=== PATIENT | female | born 1945 | race African-American/Black ===

== ENCOUNTER 2017-03-20 10:50 | Inpatient (IN) | payer MEDICARE, MEDICAID ==
--- NOTE | 2017-03-20 12:43 | RAD ---
FOUR VIEWS OF THE RIGHT KNEE: COMPARISON: None. HISTORY: Right knee pain after feeling a pop in the knee. FINDINGS: Four views of the right knee show moderate prepatellar soft tissue swelling. There is a fracture of the lower pole of the patella. No knee effusion is seen. There is mild patellofemoral osteoarthri tis. IMPRESSION: Fracture of the lower pole of the patella. POS: [facility]
[2017-03-20] MEDS ORDERED: Morphine 10 MG/ML VIAL ONE (13:28)
[2017-03-20 14:05] LABS: #Eosinphils 0.1 thou/uL (0.0-0.7); #Lymphocytes 1.2 thou/uL (1.20-3.40); #Monocytes 0.4 thou/uL (0.11-0.59); %Basophils 0.3 % (0.0-1.0); %Eosinophils 1.4 % (0.0-10.0); %Lymphocytes 20.6 % (21.0-51.0); %Monocytes 7.4 % (0.0-10.0); Hematocrit 33.8 % (36.0-47.0); Mean Platelet Volume 7.3 fL (7.4-10.4); Red Blood Cell (RBC) Count 3.77 mill/uL (4.20-5.40); White Blood Cell (WBC) Count 5.7 thou/uL (4.8-10.8)
[2017-03-20 14:08] LABS: ALT (SGPT) 11 U/L (8-55); AST (SGOT) 20 U/L (5-34); Alkaline Phosphatase 107 U/L (40-150); Anion Gap 16 mmol/L (10-20); BUN (Urea Nitrogen) 15 mg/dL (9.8-20.1); Bilirubin, Total 0.6 mg/dL (0.2-1.2); Calc. Creatinine Clearance 0 mL/min (70-130); Calcium 9.7 mg/dL (7.8-10.44); Carbon Dioxide 22 mmol/L (23-31); Chloride 105 mmol/L (98-107); Estimated GFR-MDRD 74; Globulin 4.1 g/dL (2.4-3.5)
[2017-03-20] MEDS ORDERED: Metoprolol Tartrate 5 MG/5 ML VIAL ONE (14:29)
[2017-03-20] MEDS ORDERED: Ketorolac Tromethamine 30 MG/ML VIAL ONE (14:48)
[2017-03-20] MEDS ORDERED: CEFAZOLIN/Water 2 GM/20 ML SYRINGE ONE (16:15)
[2017-03-20] MEDS ORDERED: Promethazine HCl 25 MG/ML VIAL IM PRN (16:50)
[2017-03-20] MEDS ORDERED: traMADol HCl 50 MG TAB PO PRN (16:50)
[2017-03-20] MEDS ORDERED: Zolpidem Tartrate 5 MG TAB PO PRN (16:50)
[2017-03-20] MEDS ORDERED: Fentanyl 100 MCG/2 ML VIAL SLOW IVP PRN (16:50)
[2017-03-20] MEDS ORDERED: Ondansetron HCl/PF 4 MG/2 ML Vial IVP PRN ×2 (16:50→17:46)
[2017-03-20] MEDS ORDERED: diphenhydrAMINE 25 MG CAP PO PRN (16:50)
[2017-03-20] MEDS ORDERED: Acetaminophen 325 MG TAB PO PRN (16:50)
[2017-03-20] MEDS ORDERED: cloNIDine 0.2 MG TAB PO PRN ×2 (16:54→22:45)
[2017-03-20] MEDS ORDERED: Dextrose 50% Abboject 50 ML SYRINGE SLOW IVP PRN (16:59)
[2017-03-20] MEDS ORDERED: Dextrose 5% in Water 1,000 ML IV PRN (16:59)
--- NOTE | 2017-03-20 17:04 | HP ---
PRINCIPAL DIAGNOSIS: Patellar fracture. HISTORY OF PRESENT ILLNESS: She is a very pleasant 71-year-old woman who was at her local car [employer] today when she fell, suffered a fracture of patella, she is unable to walk and presents here via [facility]. PAST MEDICAL HISTORY: Positive for hypertension. CURRENT MEDICATIONS: Metoprolol. ALLERGIES TO MEDICATIONS: None. PAST SURGICAL HISTORY: Positive for hysterectomy and breast biopsy. REVIEW OF SYSTEMS: Negative for head or neck trauma, neck stiffness, neck pain, numbness, and tingl ing in the extremities, loss of consciousness. PHYSICAL EXAMINATION: GENERAL: Shows a pleasant woman in no distress. HEENT: Normocephalic, atraumatic. LUNGS: Clear. HEART: Regular. ABDOMEN: Soft, nontender. EXTREMITIES: Right knee shows swelling, palpable defect in the patella and unable to do straight le g raise. She has intact DP and PT pulses, intact sensation. Radiograph showed displaced fracture of patella. PLAN: Plan is for open repair of the patella, this may be with pins, this may be a direct suture re pair. She understands the risk of infection, stiffness, nerve or blood vessel damage, blood clots, transfusion, , and would like to proceed with surgery.
--- NOTE | 2017-03-20 18:42 | OP ---
DATE OF SERVICE: 03/20/2017 PREOPERATIVE DIAGNOSIS: Right patellar fracture. POSTOPERATIVE DIAGNOSIS: Right patellar fracture. PROCEDURE: Open surgical repair of right patellar fracture. SURGEON: Tanner Levine M.D. HUMAN RESOURCES TRAINING MANAGER: None. ANESTHESIA: General. BLOOD LOSS: Minimal. SPECIMEN: None. DRAINS: None. COMPLICATIONS: None. DESCRIPTION OF PROCEDURE: The patient was taken to the operative suite where general anesthesia was induced. She received Ancef preoperatively. Right leg was prepped and draped in the usual sterile fashion. I made a longitudinal incision anteriorly. Dissection was carried down through the prepa tellar bursa to the fracture. The comminuted fracture bits were removed from the inferior pole of p atella. Irrigation was performed. The fracture was repaired using #5 Ethibond suture. Sutures wer e woven in [place] fashion to the infrapatellar tendon. The patella itself was drilled in Naqvi wolfe ture passer was used to pass a #5 Ethibond through the patella and repaired over strong bony bridge. I was able to flex the knee 90 degrees. Patellar tendons remained intact. Irrigation was perform ed again. I repaired the retinaculum medially and laterally with #2 Vicryl, subcutaneous tissue hui sed with 2-0 Vicryl, the skin was closed with josephine. Sterile dressings applied. Tourniquet was r eleased. Knee immobilizer was applied. There were no complications.
[2017-03-20] MEDS: Senokot S 8.6-50 MG TAB PO SCH (20:52)
[2017-03-20] MEDS: Ferrous Gluconate 324 MG TAB PO SCH (20:52)
[2017-03-20] MEDS: Aspirin 325 MG TAB PO SCH (20:52)
[2017-03-20] MEDS ORDERED: hydrALAZINE 25 MG TAB PO SCH (21:00)
[2017-03-20] MEDS ORDERED: Minoxidil 2.5 MG TAB PO SCH (21:00)
[2017-03-20] MEDS ORDERED: Ketotifen Fumarate 0.025% Ophth Soln 5 ml Bottle EA EYE SCH (21:00)
[2017-03-20] MEDS: CEFAZOLIN/Water 2 GM/20 ML SYRINGE SLOW IVP SCH ×2 (22:30→22:31)
[2017-03-20] MEDS ORDERED: Carvedilol 25 MG TAB PO SCH (22:45)
[2017-03-20 22:53] VITALS: BMI 33.5
[2017-03-20] MEDS: HYDROcodone/Acetaminophen 10/325 mg Tablet PO PRN (23:16)
[2017-03-20] MEDS: Dextrose 5 %-0.45 % NaCl 1,000 ML IV SCH (23:16)
[2017-03-20] MEDS: HumaLOG 300 UNITS/3 ML VIAL SC PRN (23:19)
[2017-03-21] MEDS ORDERED: hydrALAZINE 25 MG TAB PO SCH (00:15)
[2017-03-21] MEDS: CEFAZOLIN/Water 2 GM/20 ML SYRINGE SLOW IVP SCH ×2 (01:10→08:36)
[2017-03-21] MEDS: HYDROcodone/Acetaminophen 10/325 mg Tablet PO PRN ×3 (03:37→15:16)
[2017-03-21 05:33] LABS: Hematocrit 31.7 % (36.0-47.0); Mean Platelet Volume 7.5 fL (7.4-10.4); Red Blood Cell (RBC) Count 3.55 mill/uL (4.20-5.40); White Blood Cell (WBC) Count 6.8 thou/uL (4.8-10.8)
[2017-03-21] MEDS: HumaLOG 300 UNITS/3 ML VIAL SC PRN (06:43)
[2017-03-21] MEDS: Furosemide 20 MG TAB PO SCH (08:33)
[2017-03-21] MEDS: Aspirin 325 MG TAB PO SCH ×2 (08:33→21:23)
[2017-03-21] MEDS: hydrALAZINE 25 MG TAB PO SCH ×3 (08:34→21:24)
[2017-03-21] MEDS: Valsartan 80 MG TAB PO SCH (08:34)
[2017-03-21] MEDS: Carvedilol 25 MG TAB PO SCH ×2 (08:34→21:24)
[2017-03-21] MEDS: Spironolactone 25 MG TAB PO SCH (08:35)
[2017-03-21] MEDS: Ferrous Gluconate 324 MG TAB PO SCH ×2 (08:35→21:24)
[2017-03-21] MEDS: metFORMIN 500 MG TAB PO SCH ×2 (08:35→17:39)
[2017-03-21] MEDS: Potassium Chloride 10 MEQ TAB PO SCH (08:35)
[2017-03-21] MEDS: Multivitamin W/ Minerals 1 TAB PO SCH (08:35)
[2017-03-21] MEDS: Senokot S 8.6-50 MG TAB PO SCH ×2 (08:35→21:23)
[2017-03-21] MEDS ORDERED: Losartan 25 MG TAB PO SCH (09:00)
[2017-03-21] MEDS ORDERED: FLU VACC TS2017-18 (>65YR) 0.5 ML SYRINGE IM ONE (09:00)
--- NOTE | 2017-03-21 13:20 | CON ---
DATE OF CONSULTATION: 03/21/2017 DATE OF ADMISSION: 03/20/2017 ADMITTING PHYSICIAN: Dr. Tanner Levine. REASON FOR ADMISSION: Patellar fracture, consultation for medical management. HISTORY OF PRESENT ILLNESS: This is a 71-year-old black female patient of Dr. Tito caldwell, who has undergone a right knee open patellar fracture repair. Dr. Levine consulted us for medica l management. PAST MEDICAL HISTORY: Positive for diabetes, hypertension, and congestive heart failure, found on e cho by Dr. You in summer. Her last EF at that time was 25%-30%. She also has a history of pernicious anemia, iron deficiency anemia, pulmonary hypertension, vitamin D deficiency, and some depression. PAST SURGICAL HISTORY: Positive for total abdominal hysterectomy with bilateral salpingo-oophorecto my, and also a negative breast biopsy. MEDICATIONS: Include metformin 500 b.i.d., Diovan 160 daily, spironolactone 25 mg daily, Coreg 25 m g twice a day, clonidine 0.1 mg 3 times a day, hydralazine 100 mg 3 times a day, and sertraline 25 m g daily. ALLERGIES: She has no known drug allergies. FAMILY HISTORY: Both parents have , strong family presence of emphysema and lung cancer. She had a sister from lung cancer recently as well as several other family members. SOCIAL HISTORY: She is a . Her \\\\"from smoking.\\\\" She lives with nephew. She personally has no toxic habits, was never a smoker. 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 REVIEW OF SYSTEMS: Essentially negative. She denies any headache or fever or chills or visual vaz ges. She denies any trouble chewing or swallowing. No chest pain, no shortness of breath, no cough . She denies any nausea, vomiting, or abdominal pain. She denies any changes to her stool. No shane tati or bright red blood per rectum. She denies any changes in her usual urinary habits. No dysuria or hematuria. She denies any weakness. No paresis or paresthesias. She denies any auditory or vi sual hallucinations. She denies any suicidal or homicidal ideations. PHYSICAL EXAMINATION: VITAL SIGNS: Temperature 98.7, pulse 65, her blood pressure is 135/72, respirations 16, and satting 97% on room air. GENERAL: She is sitting up in bed in no acute distress, very cooperative and quiet. HEENT: Shows normocephalic, atraumatic cranium with pupils are equal, round, and reactive to light and accommodation. Extraocular movements are intact. Mucous membranes are moist. NECK: Supple. No JVD, no bruits, no thyromegaly. HEART: S1, S2 with no rubs or gallops, but there is a 3/6 systolic ejection murmur heard best over the left second intercostal space. LUNGS: Showed clear to auscultation bilaterally with no rales, rhonchi, or wheezes. ABDOMEN: Soft, nontender, nondistended. No palpable masses, no hepatosplenomegaly. Bowel sounds a re hypoactive today. GENITOURINARY: Deferred. NEUROMUSCULAR: She is alert and oriented x4. Cranial nerves II-XII are equal. She has no obvious sensory or motor deficits. Her right leg is in a knee immobilizer. Her pulses are palpable in all three of the other extremities. Her toes on right side, she can move them and she has good cap refi ll less than 2 seconds. LABORATORY DATA AND X-RAY FINDINGS: Her white count on admission was 6.8, H\\T\\H was 10 and 31 of 22 0,000 platelets. Her sodium was 139, potassium 4.1, chloride 105, bicarb 22, BUN 15, creatinine 0.9 with a most latest glucose was 176. AST was normal at 20 and ALT normal was 11. ASSESSMENT AND PLAN: Right patellar fracture status post open repair. She is postoperative day #1, diabetes, hypertension, and congestive heart failure. We will continue her home meds. We will janelle ck some lab work like a beta natriuretic peptide and routine lab work for IV fluids she is getting. Dr. Lopez will follow her while she is in the hospital. We recommended that she is to see the c ardiologist as an outpatient. She does not have any symptoms to warrant seeing him while she is her e.
[2017-03-21] MEDS: Dextrose 5 %-0.45 % NaCl 1,000 ML IV SCH (19:38)
[2017-03-22 05:31] LABS: Hematocrit 30.1 % (36.0-47.0); Mean Platelet Volume 7.1 fL (7.4-10.4); Red Blood Cell (RBC) Count 3.39 mill/uL (4.20-5.40); White Blood Cell (WBC) Count 7.3 thou/uL (4.8-10.8)
[2017-03-22 05:36] LABS: #Lymphocytes 1.3 thou/uL (1.20-3.40); #Monocytes 0.9 thou/uL (0.11-0.59); #Neutrophils 4.7 thou/uL (1.40-6.50); %Eosinophils 0.1 % (0.0-10.0); %Lymphocytes 19.3 % (21.0-51.0); %Monocytes 13.2 % (0.0-10.0); Hematocrit 30.4 % (36.0-47.0); Mean Platelet Volume 7.1 fL (7.4-10.4); Red Blood Cell (RBC) Count 3.43 mill/uL (4.20-5.40)
[2017-03-22 05:38] LABS: Hemoglobin A1c 6.1 % (4.0-6.0)
[2017-03-22 06:00] LABS: Anion Gap 12 mmol/L (10-20); BUN (Urea Nitrogen) 22 mg/dL (9.8-20.1); Calc. Creatinine Clearance 57 mL/min (70-130); Calcium 8.8 mg/dL (7.8-10.44); Carbon Dioxide 23 mmol/L (23-31); Chloride 103 mmol/L (98-107); Estimated GFR-MDRD 55
[2017-03-22] MEDS: HYDROcodone/Acetaminophen 10/325 mg Tablet PO PRN ×2 (09:25→16:10)
[2017-03-22] MEDS: Aspirin 325 MG TAB PO SCH (09:27)
[2017-03-22] MEDS: Senokot S 8.6-50 MG TAB PO SCH (09:27)
[2017-03-22] MEDS: metFORMIN 500 MG TAB PO SCH (09:28)
[2017-03-22] MEDS: hydrALAZINE 25 MG TAB PO SCH ×2 (09:28→16:07)
[2017-03-22] MEDS: Carvedilol 25 MG TAB PO SCH (09:30)
[2017-03-22] MEDS: Valsartan 80 MG TAB PO SCH (09:30)
[2017-03-22] MEDS: Furosemide 20 MG TAB PO SCH (09:31)
[2017-03-22] MEDS: Ferrous Gluconate 324 MG TAB PO SCH (09:31)
[2017-03-22] MEDS: Potassium Chloride 10 MEQ TAB PO SCH (09:31)
[2017-03-22] MEDS: Multivitamin W/ Minerals 1 TAB PO SCH (09:31)
[2017-03-22] MEDS: Spironolactone 25 MG TAB PO SCH (09:31)
[2017-03-22] MEDS: Dextrose 5 %-0.45 % NaCl 1,000 ML IV SCH (09:33)
[2017-03-22 12:12] VITALS: BP 146/70; TEMP 98.8
[2017-03-22] MEDS: HumaLOG 300 UNITS/3 ML VIAL SC PRN (12:29)
--- NOTE | 2017-03-23 07:54 | PRG ---
DATE OF SERVICE: 03/22/2017 SUBJECTIVE: The patient is feeling some better. She is having good pain control with analgesia. H er blood pressure is better controlled. She denies chest pain, shortness of breath or palpitations. OBJECTIVE: VITAL SIGNS: Temperature 98.8, pulse of 83, respirations 16, blood pressure 146/70, pulse ox is 97% on room air. GENERAL: She is awake and alert, in no acute distress. Speech is clear. NECK: Supple. HEART: Regular rate and rhythm with a 3/6 systolic ejection murmur. LUNGS: Clear bilaterally. ABDOMEN: Soft. EXTREMITIES: With no edema. Right knee with brace and dressing in place. LABORATORY DATA: Reviewed. White blood cell count 7000, hemoglobin and hematocrit 9.4 and 30.4, pl atelets of 220. Sodium 134, potassium 4.0, chloride 103, CO2 of 23, BUN and creatinine 22 and 1.16 with a GFR of 55. BNP was 147. ASSESSMENT AND PLAN: 1. This is a 71-year-old female patient admitted for a right patellar fracture status post repair. She is postoperative day #2 and doing well. 2. Hypertension. We will continue her current medications. She is clinically stable at this time. 3. Diabetes. We will continue oral medications and insulin sliding scale. 4. Postoperative care as per Ortho. 5. DISPOSITION: Plan for rehab placement when okay with Orthopedics.
--- NOTE | 2017-03-23 08:35 | PQF ---
REFUGIO PATEL SUSANA OLIVO DO [id number] SURG B- [id number] CLINICAL DOCUMENTATION IMPROVEMENT CLARIFICATION FORM: ICD-10 Updated PLEASE DO AN ADDENDUM TO THE PROGRESS NOTE WITH ANY DOCUMENTATION UPDATES OR ADDITIONS AND CARRY THROUGH TO DC SUMMARY. THANK YOU. DATE: 03-23-17 ATTN: DR. OLIVO Please exercise your independent, professional judgment in responding to the clarification form. Clinical indicators are provided on the bottom of this form for your review Please check appropriate box(s): HEART FAILURE: A.TYPE: [ X ] Systolic / HFrEF [ ] Diastolic / HFpEF [ ] Combined Systolic / Diastolic B.ACUITY [ ] Acute on Chronic [ x] Chronic C.WITH (if appropriate) [ ] Hypertensive Heart Disease[ ] Hypertensive Heart and Kidney Disease [ ] Other diagnosis [ ] Unable to determine In addition, please specify: Present on Admission (POA): [ X ] Yes [ ] No [ ] Unable to determine For continuity of documentation, please document condition throughout progress notes and discharge summary. Thank You. CLINICAL INDICATORS - SIGNS / SYMPTOMS / LABS CONSULT DR. JOHNSON: HTN; CHF ECHO 2016 - EF 25-30% LABS: 03-22 BNP 147.1 RISKS: H&P: HTN CONSULT DR. JOHNSON - CHF TREATMENTS: CPOE - MAR - COREG 03-20 LASIX PO 03-20 THANK YOU, DAMARI (This form is maintained as a part of the permanent medical record) 2014 [employer]. All Rights Reserved Damari Luevano RN, BS [email or web address]
--- NOTE | 2017-03-23 11:52 | DIS ---
DATE OF ADMISSION: 03/20/2017 DATE OF DISCHARGE: 03/22/2017 PREOPERATIVE DIAGNOSIS: Right patellar fracture. DISCHARGE DIAGNOSIS: Right patellar fracture. PROCEDURE: The patient underwent an open surgical repair of right patellar fracture. HOSPITAL SOURSE: Hospital stay was unremarkable. She was admitted to the third floor where she work ed with staff, therapy, and did quite well. By postoperative day #2, she was ready to discharge. DISCHARGE CONDITION: Good/stable. DISPOSITION: To inpatient rehabilitation. FOLLOWUP: Follow up would be in 10-14 days, sooner if there are problems or concerns. DISCHARGE MEDICATIONS: Given with usage instructions.
== END 2017-03-22 17:20 | DRG 516 ==
LOC: ERS 10:50 → SDC/OP 15:49 → SURG B 16:50
PROVIDERS: ADMIT Orthopaedic Surgery; ATTEND Orthopaedic Surgery
PROC: 0QSD0ZZ Reposition Right Patella, Open Approach (ICD-10-PCS; principal; 2017-03-20)
DX: S82.041A Displaced comminuted fracture of right patella, initial encounter for closed fracture (principal); I50.32 Chronic diastolic (congestive) heart failure; E11.9 Type 2 diabetes mellitus without complications; I11.0 Hypertensive heart disease with heart failure; E55.9 Vitamin D deficiency, unspecified; W19.XXXA Unspecified fall, initial encounter; Y92.89 Other specified places as the place of occurrence of the external cause; Z79.84 Long term (current) use of oral hypoglycemic drugs
CPT/HCPCS: 36415; 36416; 80048; 80053; 83036; 83880; 85025; 85027; 93005; 96361; 96374; 96375; G0390; G8978-GP-CL; G8979-GP-CK; J1885; J2270

== ENCOUNTER 2018-01-12 11:23 | Emergency (ER) | payer MEDICARE, MEDICAID ==
[2018-01-12 12:34] LABS: #Lymphocytes 1.3 thou/uL (1.20-3.40); #Monocytes 0.7 thou/uL (0.11-0.59); #Neutrophils 6.3 thou/uL (1.40-6.50); %Basophils 0.4 % (0.0-1.0); %Eosinophils 0.2 % (0.0-10.0); %Lymphocytes 15.8 % (21.0-51.0); %Monocytes 7.9 % (0.0-10.0); %Neutrophils 75.8 % (42.0-75.0); Hemoglobin 11.2 g/dL (12.0-16.0); Mean Corpuscular HGB CONC 32.1 g/dL (32.0-36.0); Mean Corpuscular Hemoglobin 29.1 pg (27.0-31.0); Mean Corpuscular Volume 90.7 fL (78.0-98.0); Mean Platelet Volume 7.4 fL (7.4-10.4); Platelet Count 267 thou/uL (130-400); RBC Distribution Width 11.8 % (11.5-14.5); Red Blood Cell (RBC) Count 3.84 mill/uL (4.20-5.40); White Blood Cell (WBC) Count 8.3 thou/uL (4.8-10.8)
[2018-01-12 12:53] LABS: ALT (SGPT) 9 U/L (8-55); AST (SGOT) 17 U/L (5-34); Albumin 4.8 g/dL (3.4-4.8); Alkaline Phosphatase 105 U/L (40-150); Anion Gap 16 mmol/L (10-20); BUN (Urea Nitrogen) 12 mg/dL (9.8-20.1); Bilirubin, Total 0.7 mg/dL (0.2-1.2); Calc. Creatinine Clearance 0 mL/min (70-130); Calcium 10.4 mg/dL (7.8-10.44); Carbon Dioxide 24 mmol/L (23-31); Chloride 97 mmol/L (98-107); Estimated GFR-MDRD 61; Globulin 4.3 g/dL (2.4-3.5); Glucose 172 mg/dL (83-110); Lipase 12 U/L (8-78); Potassium 3.7 mmol/L (3.5-5.1); Protein, Total 9.1 g/dL (6.0-8.3); Sodium 133 mmol/L (136-145)
[2018-01-12] MEDS ORDERED: Ondansetron ODT 4 MG TAB ONE (13:21)
[2018-01-12] MEDS ORDERED: ISOVUE-370 76%-LOCM 1 ML ONE (14:12)
[2018-01-12 16:42] LABS: Bilirubin Negative (Negative); Blood, Urine Negative (Negative); Clarity CLEAR (Clear); Glucose, Urine (Dipstick) 100 mg/dL (Negative); Leukocyte Negative (Negative); Nitrite Negative (Negative); Protein, Urine (Dipstick) > or equal to 300 mg/dL (Neg-Trace); Specific Gravity, Urine 1.015 (1.002-1.036)
[2018-01-12 16:44] LABS: Bacteria/HPF Rare-Few HPF (None Seen); Hyaline Casts/LPF 0-3 HYALINE CAST LPF (0-3 Hyaline); Pathc Cast-AUWi Flag 0.29 (0-2.49)
--- NOTE | 2018-01-12 17:09 | CT ---
CT OF THE ABDOMEN AND PELVIS WITH CONTRAST 01/12/18 HISTORY: Abdominal pain with nausea and vomiting that began last night. TECHNIQUE: Multiple contiguous axial images were obtained in a CT of the abdomen and pelvis with contrast. Coron al reformats were performed. FINDINGS: The gallbladder is distended. There are subcentimeter hypodensities in the right kidney which are too small to definitely characterize but likely represents cysts. There are other slightly large hypoden sities in the left kidney measuring up to 1.3 cm in size which represents simple cysts. The liver, ad renal glands, spleen, and pancreas are unremarkable. No free air, free fluid or stranding changes are seen in the abdomen or pelvis. The patient is status post hysterectomy. The large and small bowel are unremarkable. The appendix is not definitely seen. There is moderate stool throughout the colon. Atherosclerotic calcifications are seen in the aorta. No abdominal or pelvic lymphadenopathy are seen . Degenerative changes are seen in the spine. The visualized inferior thorax and abdominal wall soft ti ssues are unremarkable. IMPRESSION: 1. Gallbladder distention. 2. Constipation. 3. Right renal cysts. POS: [facility]
== END 2018-01-12 18:00 | disposition home or self-care (01) ==
LOC: ERS 11:23
DX: B34.9 Viral infection, unspecified (principal)
CPT/HCPCS: 36415; 74177; 80053; 81003; 81015; 83690; 85025; 96361; 96374; J2270; Q0162

== ENCOUNTER 2020-03-28 07:31 | Outpatient (CLI) | payer MEDICARE, MEDICAID ==
--- NOTE | 2020-03-28 08:07 | ULT ---
US Gallbladder RUQ: 03/28/2020 7:35 AM CLINICAL HISTORY: Transaminitis. STUDY: Limited right upper quadrant ultrasound of abdomen. COMPARISON: None. FINDINGS: Liver: Size: Normal. Echogenicity: Hyperechoic consistent with hepatic steatosis. Contour: Smooth. Mass: None. Bile ducts: No intrahepatic biliary dilatation. Common bile duct measures 9 mm. Gallbladder: Removed Pancreas: Head and body appear normal; tail obscured by bowel gas. Right kidney: No pelvicalyceal dilatation. Right kidney measuring 11.0 cm in length. IMPRESSION: 1. Fatty liver 2. Enlargement of the common bile duct is likely a reservoir effect from prior cholecystectomy.
--- NOTE | 2020-03-28 11:22 | NM ---
Radionucleotide parathyroid scan with SPECT imaging HISTORY: Hyperparathyroidism. FINDINGS: Early images show physiologic uptake of radiotracer within the salivary glands and thyroid gland. Delayed images show appropriate washout of radiotracer from the thyroid gland. No residual abnormal foci of radiotracer uptake. Images include the upper mediastinum. IMPRESSION : No evidence of parathyroid adenoma.
== END 2020-03-28 07:32 | disposition home or self-care (01) ==
LOC: ULT 07:31
PROVIDERS: ATTEND Family Medicine
DX: E21.3 Hyperparathyroidism, unspecified (principal); R74.01 Elevation of levels of liver transaminase levels; K76.0 Fatty (change of) liver, not elsewhere classified; K83.8 Other specified diseases of biliary tract; Z90.49 Acquired absence of other specified parts of digestive tract
CPT/HCPCS: 76705; 78072; A9500

== ENCOUNTER 2020-08-13 10:24 | Emergency (ER) | payer MEDICARE, MEDICAID ==
[2020-08-13] MEDS ORDERED: Magnesium 2 GM/50 ML BAG (IN WATER) ONE (10:32)
[2020-08-13] MEDS ORDERED: EPINEPHrine 1 MG/10 ML Abboject SYRINGE ONE (10:50)
[2020-08-13] MEDS ORDERED: Calcium Chloride 1 GM/10 ML Abboject SYRINGE ONE (10:50)
[2020-08-13] MEDS ORDERED: Amiodarone 150 MG/3 ML VIAL ONE (10:50)
[2020-08-13] MEDS ORDERED: Atropine Sulfate 1 mg/10 ml Syringe ONE (10:50)
[2020-08-13] MEDS ORDERED: Sodium Bicarb 50 MEQ/50 ML Abboject 8.4% SYRINGE ONE (10:50)
== END 2020-08-13 10:51 | disposition expired ==
LOC: ERS 10:24
DX: I46.9 Cardiac arrest, cause unspecified (principal); I10 Essential (primary) hypertension; E11.9 Type 2 diabetes mellitus without complications
CPT/HCPCS: 31500; 92950; 96374; 96375; J0171; J0282; J0461; J3475